=== PATIENT | female | born 1985 | race Caucasian/White ===

== ENCOUNTER 2018-12-11 12:04 | Outpatient (CLI) | payer OTHER, SELFPAY ==
[2018-12-11 12:41] LABS: HCT 41.9 % (36.0-46.0); HGB 14.5 g/dL (12.0-15.5); Mean Corp. HGB Concentration 34.6 g/dL (32.0-36.0); Mean Corpuscular Hemoglobin 31.7 pg (27.0-33.0); Mean Corpuscular Volume 91.7 fL (80-95); Mean Platelet Volume 10.2 fL (8.0-11.0); Platelet Count 344 x1000/uL (130-400); RBC 4.57 m/cumm (4.00-5.20); RBC Distribution Width 13.1 % (11.7-14.6); White Blood Cell Count 9.73 k/cumm (4.4-10.8)
[2018-12-11 13:30] LABS: ALT 105 U/L (12-78); AST 73 U/L (15-37); Albumin 3.9 g/dL (3.4-5.0); Alkaline Phosphatase 86 U/L (46-116); BUN 12 mg/dL (7-18); Bilirubin, Total 0.7 mg/dL (0.2-1.0); CREATININE 0.92 mg/dL (0.55-1.02); Calcium 9.2 mg/dL (8.5-10.1); Chloride 102 mmol/L (98-107); Cholesterol 175 mg/dL (50-200); Glucose 201 mg/dL (70-100); HDL Cholesterol 46 mg/dL (40-60); LDL CHOLESTEROL 110 mg/dL (<100); Potassium 4.3 mmol/L (3.5-5.1); Sodium 138 mmol/L (136-145); Total Protein 7.6 g/dL (6.4-8.2); Triglyceride 115 mg/dL (30-150)
[2018-12-11 13:36] LABS: TSH (W/Ref FT4) 1.95 uIU/mL (0.358-3.74)
== END 2018-12-11 12:24 ==
PROVIDERS: PCP Student in an Organized Health Care Education/Training Program; Visit Provider Student in an Organized Health Care Education/Training Program
DX: E03.9 Hypothyroidism, unspecified (principal); E11.65 Type 2 diabetes mellitus with hyperglycemia; Z86.2 Personal history of diseases of the blood and blood-forming organs and certain disorders involving the immune mechanism; Z13.220 Encounter for screening for lipoid disorders
CPT/HCPCS: 36415; 80053; 80061; 83721; 85027; 84443

== ENCOUNTER 2018-12-20 01:22 | Outpatient (CLI) | payer OTHER, SELFPAY ==
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
== END 2018-12-20 01:42 ==
PROVIDERS: PCP Student in an Organized Health Care Education/Training Program; Visit Provider Dietitian, Registered
DX: E11.9 Type 2 diabetes mellitus without complications (principal); Z79.84 Long term (current) use of oral hypoglycemic drugs; Z71.3 Dietary counseling and surveillance
CPT/HCPCS: 97802

== ENCOUNTER 2019-02-24 12:30 | Emergency (ER) | payer SELFPAY ==
[2019-02-24 12:40] VITALS: BP 126/86; PULSE 81; RESP 16; TEMP 36; O2SAT 98
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
--- NOTE | 2019-02-24 13:18 | NUR.NOTE ---
dc/rx reviewed with pt able to verblize understanding Nursing Note:
== END 2019-02-24 13:19 | disposition home or self-care (01) ==
PROVIDERS: Emergency Provider Student in an Organized Health Care Education/Training Program; PCP Student in an Organized Health Care Education/Training Program
DX: S00.86XA Insect bite (nonvenomous) of other part of head, initial encounter (principal); W57.XXXA Bitten or stung by nonvenomous insect and other nonvenomous arthropods, initial encounter; E11.9 Type 2 diabetes mellitus without complications; Z79.4 Long term (current) use of insulin
CPT/HCPCS: 36416; 82962; 99283

== ENCOUNTER 2019-04-27 10:12 | Emergency (ER) | payer MEDICAID, SELFPAY ==
[2019-04-27 10:30] VITALS: BP 125/87; PULSE 86; RESP 18; TEMP 36.4; O2SAT 99
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
== END 2019-04-27 11:22 | disposition home or self-care (01) ==
PROVIDERS: Emergency Provider Student in an Organized Health Care Education/Training Program; PCP Student in an Organized Health Care Education/Training Program
DX: R11.2 Nausea with vomiting, unspecified (principal); R19.7 Diarrhea, unspecified; J06.9 Acute upper respiratory infection, unspecified; E11.9 Type 2 diabetes mellitus without complications; Z79.84 Long term (current) use of oral hypoglycemic drugs
CPT/HCPCS: 99283

== ENCOUNTER 2019-05-22 14:49 | Emergency (ER) | payer OTHER, MEDICAID, SELFPAY ==
[2019-05-22 14:51] VITALS: BP 139/82; PULSE 94; RESP 16; TEMP 36.5; O2SAT 96
--- NOTE | 2019-05-22 15:04 | DI.RAD_ITS ---
EXAM: XR ELBOW LT COMPLETE CLINICAL HISTORY: fall, pain TECHNIQUE: COMPARISON: No exams were available for comparison FINDINGS: Three views were obtained. There is no evidence of an elbow joint effusion or hemarthrosis. No frac ture is seen. IMPRESSION:
--- NOTE | 2019-05-22 15:04 | DI.RAD_ITS ---
EXAM: XR WRIST LT COMPLETE CLINICAL HISTORY: fall, pain TECHNIQUE: COMPARISON: No exams were available for comparison FINDINGS: Three views were obtained. There is an ulnar minus variance. No evidence of acute fracture or dislo cation. IMPRESSION:
--- NOTE | 2019-05-22 15:07 | DI.RAD_ITS ---
EXAM: XR SHOULDER LT COMPLETE 2+V CLINICAL HISTORY: pain, fall TECHNIQUE: COMPARISON: No exams were available for comparison FINDINGS: Five views were obtained. There is no evidence of a fracture or dislocation. IMPRESSION:
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
[2019-05-22] MEDS: Ibuprofen 800 MG TAB PO (15:13)
== END 2019-05-22 16:09 | disposition home or self-care (01) ==
PROVIDERS: Emergency Provider Emergency Medicine; PCP Student in an Organized Health Care Education/Training Program; Referring Provider Student in an Organized Health Care Education/Training Program
DX: S63.502A Unspecified sprain of left wrist, initial encounter (principal); S46.912A Strain of unspecified muscle, fascia and tendon at shoulder and upper arm level, left arm, initial encounter; W01.0XXA Fall on same level from slipping, tripping and stumbling without subsequent striking against object, initial encounter
CPT/HCPCS: 29125; 99284; 73030; 73080; 73110; 99282; L3650; L3908

== ENCOUNTER 2019-05-23 20:46 | Emergency (ER) | payer OTHER, SELFPAY ==
[2019-05-23 20:53] VITALS: BP 145/94; PULSE 84; RESP 18; TEMP 36.9; O2SAT 96
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
[2019-05-23] MEDS: Lidocaine 5% Patch 1 PATCH TP (21:29)
--- NOTE | 2019-05-23 21:34 | DI.RAD_ITS ---
EXAM: XR SHOULDER LT COMPLETE 2+V INDICATION: re-injured/worse pain. COMPARISON: XR SHOULDER LT COMPLETE 2+V from 05/22/2019 TECHNIQUE: 2D digital imaging was performed. FINDINGS: No fracture or dislocation is seen. There are no significant degenerative changes. IMPRESSION: Negative left shoulder.
--- NOTE | 2019-05-23 21:50 | DI.VRAD_ITS ---
PROCEDURE INFORMATION: Exam: XR Left Shoulder Exam date and time: 05/23/2019 9:31 PM Clinical history: 33 years old, female; Injury or trauma; Injury history: Re-injured sprain/strain of left shoulder. Worse pain; Initial encounter; Blunt trauma (contusions or hematomas; Injury date: 05/23/2019; Injury details: Sprain/strain yesterday, re-injured today TECHNIQUE: Imaging protocol: XR Left shoulder. Views: 2 or more views. COMPARISON: CR XR SHOULDER LT COMPLETE 2+V 22/05/2019 15:15 FINDINGS: Bones/joints: Normal. Soft tissues: Unremarkable. IMPRESSION: No acute bony findings. If clinical symptoms persist recommend followup film in 7-10 days. Dictated and Authenticated by: Debbie Singh MD. Ordering:ART Singh MD
[2019-05-23 22:08] VITALS: BP 130/95; PULSE 88; RESP 18; TEMP 36.7; O2SAT 95
== END 2019-05-23 22:12 | disposition home or self-care (01) ==
PROVIDERS: Emergency Provider Emergency Medicine; PCP Student in an Organized Health Care Education/Training Program; Referring Provider Student in an Organized Health Care Education/Training Program
DX: S49.92XA Unspecified injury of left shoulder and upper arm, initial encounter (principal); W01.0XXA Fall on same level from slipping, tripping and stumbling without subsequent striking against object, initial encounter
CPT/HCPCS: 99283; 73030

== ENCOUNTER 2019-06-19 22:06 | Emergency (ER) | payer OTHER, SELFPAY ==
[2019-06-19 22:10] VITALS: BP 142/79; PULSE 76; RESP 18; TEMP 36.4; O2SAT 99
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
[2019-06-19] MEDS: Ondansetron O.D.T. 4 MG TABEF PO (22:50)
[2019-06-19 23:36] VITALS: BP 117/70; PULSE 75; RESP 17; O2SAT 95
== END 2019-06-19 23:30 | disposition home or self-care (01) ==
PROVIDERS: Emergency Provider Physician Assistant; PCP Student in an Organized Health Care Education/Training Program
DX: K52.9 Noninfective gastroenteritis and colitis, unspecified (principal)
CPT/HCPCS: 99283

== ENCOUNTER 2019-06-24 19:38 | Emergency (ER) | payer OTHER, SELFPAY ==
[2019-06-24 19:44] VITALS: BP 150/95; PULSE 80; RESP 18; TEMP 36.3; O2SAT 100
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
[2019-06-24] MEDS: Ketorolac 15 MG/ML VIAL IVP (20:12)
[2019-06-24] MEDS: Ondansetron 4 MG/2 ML VIAL IVP (20:14)
[2019-06-24] MEDS: Normal Saline Flush 10 ML SYR IVP (20:17)
[2019-06-24 20:25] LABS: Abs Immature Grans 0.04 k/cumm (0.0-0.09); Absolute Basophil Count 0.08 k/cumm (0.0-0.2); Absolute Eosinophil Count 0.38 k/cumm (0.0-0.7); Absolute Lymphocyte Count 2.83 k/cumm (1.2-3.4); Absolute Neutrophil Count 6.99 k/cumm (1.2-6.7); Basophils % 0.7; Eosinophils % 3.5; HCT 41.6 % (36.0-46.0); HGB 14.2 g/dL (12.0-15.5); Immature Grans % 0.4; Lymphocytes % 25.9; Mean Corp. HGB Concentration 34.1 g/dL (32.0-36.0); Mean Corpuscular Hemoglobin 31.8 pg (27.0-33.0); Mean Corpuscular Volume 93.1 fL (80-95); Mean Platelet Volume 10.5 fL (8.0-11.0); Monocytes % 5.5; Platelet Count 363 x1000/uL (130-400); RBC 4.47 m/cumm (4.00-5.20); RBC Distribution Width 12.5 % (11.7-14.6); White Blood Cell Count 10.92 k/cumm (4.4-10.8)
[2019-06-24 20:26] LABS: Bilirubin Negative (Negative); Blood Negative (Negative); Clarity Clear (Clear); Glucose 500 mg/dL (Negative); Ketones Negative (Negative); Leukocyte Esterase Negative (Negative); Nitrite Negative (Negative); Specific Gravity 1.015 (1.005-1.025); Urobilinogen 0.2 EU/dL (Up TO 0.2); pH 5.5 (5-8)
[2019-06-24 20:42] LABS: PTT Activated 23.9 sec (21.0-31.4); Prothrombin Time 9.8 sec (9.3-11.0)
[2019-06-24 20:50] LABS: ALT 47 U/L (14-59); AST 23 U/L (15-37); Albumin 3.8 g/dL (3.4-5.0); Alkaline Phosphatase 140 U/L (46-116); Anion Gap 12.1 mmol/L (3-11); BUN 7 mg/dL (7-18); Bilirubin, Total 0.2 mg/dL (0.2-1.0); CO2 24.9 mmol/L (21.0-32.0); Calcium 8.9 mg/dL (8.5-10.1); Chloride 100 mmol/L (98-107); Glucose 400 mg/dL (70-100); Lipase 171 U/L (73-393); Magnesium 1.6 mg/dL (1.8-2.4); Potassium 3.7 mmol/L (3.5-5.1); Sodium 137 mmol/L (136-145); Total Protein 7.8 g/dL (6.4-8.2)
[2019-06-24] MEDS: Omnipaque 350 MG/ML 100 ML BTL IJ (21:04)
--- NOTE | 2019-06-24 21:20 | DI.CT_ITS ---
EXAM: CT ABDOMEN AND PELVIS W CLINICAL HISTORY: right lower abdominal pain TECHNIQUE: 100 cc Omnipaque 350 IV. COMPARISON: RENAL COLIC WO CONTRAST from 07/17/2012 FINDINGS: The heart size is normal. The lung bases are clear. The liver shows moderate to severe fatty infilt ration. Patient is status post cholecystectomy. There is no biliary dilatation. The spleen is norm al in size. The adrenals, pancreas and kidneys are unremarkable. There is no bowel dilatation or in flammatory change. No free air or free fluid is seen. The bladder is unremarkable. IUD is noted wi thin the uterus. The ovaries are unremarkable as visualized. There is no free fluid. The aorta is normal in diameter. No fractures are identified. IMPRESSION: Enlarged fatty liver. No acute abnormality.
[2019-06-24 21:21] VITALS: BP 127/67; PULSE 77; RESP 16; O2SAT 96
[2019-06-24] MEDS: diphenhydrAMINE 50 MG/ML VIAL 25 MG IVP (21:22)
--- NOTE | 2019-06-24 21:24 | DI.VRAD_ITS ---
PROCEDURE INFORMATION: Exam: CT Abdomen And Pelvis With Contrast Exam date and time: 06/24/2019 9:07 PM Clinical history: 33 years old, female; Other: Rlq pain; Patient HX: Ectopic surgery, gallbladder surgery TECHNIQUE: Imaging protocol: Computed tomography of the abdomen and pelvis with intravenous contrast. Radiation optimization: All CT scans at this facility use at least one of these dose optimization techniques: automated exposure control; mA and/or kV adjustment per patient size (includes targeted exams where dose is matched to clinical indication); or iterative reconstruction. COMPARISON: No relevant prior studies available. FINDINGS: Normal appearing solid organs. No intestinal obstruction. No obstructive uropathy. No free fluid. No free air. No inflammatory changes. IMPRESSION: No specific etiology identified for the patient's symptoms. Dictated and Authenticated by: Omar Taveras MD. Ordering:MILTON Wood MD
[2019-06-24 22:02] VITALS: BP 114/68; PULSE 78; RESP 16; O2SAT 96
[2019-06-24] MEDS: Prochlorperazine 10 MG TAB PO (22:02)
== END 2019-06-24 22:20 | disposition home or self-care (01) ==
PROVIDERS: Emergency Provider Emergency Medicine; PCP Student in an Organized Health Care Education/Training Program
DX: R10.30 Lower abdominal pain, unspecified (principal); L29.9 Pruritus, unspecified
CPT/HCPCS: 36415; 80053; 81025; 83690; 96374; 96375; 99285; 74177; 81003; 83735; 85025; 85610; 85730; 99284; J1200; J1885; J2405; J3490

== ENCOUNTER 2019-08-18 19:52 | Emergency (ER) | payer OTHER, SELFPAY ==
[2019-08-18 19:56] VITALS: BP 116/58; PULSE 107; RESP 18; TEMP 36.4; O2SAT 97
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
--- NOTE | 2019-08-18 20:15 | DI.RAD_ITS ---
EXAM: XR ANKLE RT COMPLETE INDICATION: pain s/p fall. COMPARISON: RIGHT ANKLE COMPLETE from 02/05/2012 TECHNIQUE: 2D digital imaging was performed. FINDINGS: There is no acute fracture or dislocation. Enthesophytes are seen at the posterior calcaneus. The s oft tissues are unremarkable. IMPRESSION: No acute fracture or dislocation.
--- NOTE | 2019-08-18 20:27 | DI.VRAD_ITS ---
PROCEDURE INFORMATION: Exam: XR Right Ankle Exam date and time: 08/18/2019 8:19 PM Age: 33 years old Clinical indication: Ankle; Right; Patient HX: Pain S/P fall TECHNIQUE: Imaging protocol: XR Right ankle. Views: 3 or more views. COMPARISON: No relevant prior studies available. FINDINGS: Bones/joints: There is no acute fracture or dislocation. The ankle mortise symmetric. Calcaneal enthesophytes are noted. Soft tissues: Normal. IMPRESSION: No acute fracture or dislocation. Dictated and Authenticated by: Anca Vasquez MD. Ordering:MILTON Wood MD
[2019-08-18] MEDS: Ibuprofen 600 MG TAB PO (20:34)
== END 2019-08-18 20:45 | disposition home or self-care (01) ==
PROVIDERS: Emergency Provider Emergency Medicine; PCP Student in an Organized Health Care Education/Training Program
DX: S93.401A Sprain of unspecified ligament of right ankle, initial encounter (principal); X50.9XXA Other and unspecified overexertion or strenuous movements or postures, initial encounter
CPT/HCPCS: 29515; 99283; 73610; L1902

== ENCOUNTER 2019-09-20 21:11 | Emergency (ER) | payer OTHER, SELFPAY ==
[2019-09-20 21:30] VITALS: BP 157/108; PULSE 98; RESP 16; TEMP 36.7; O2SAT 99
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
[2019-09-20 22:37] VITALS: BP 130/90; PULSE 87; RESP 16; O2SAT 98
== END 2019-09-20 22:30 | disposition home or self-care (01) ==
PROVIDERS: Emergency Provider Physician Assistant; PCP Student in an Organized Health Care Education/Training Program
DX: B35.4 Tinea corporis (principal); L30.9 Dermatitis, unspecified; E11.9 Type 2 diabetes mellitus without complications; Z79.84 Long term (current) use of oral hypoglycemic drugs
CPT/HCPCS: 99283

== ENCOUNTER 2019-10-04 21:12 | Emergency (ER) | payer OTHER, SELFPAY ==
[2019-10-04 21:16] VITALS: BP 145/86; PULSE 89; RESP 16; TEMP 36.2; O2SAT 97
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
[2019-10-04 21:49] VITALS: BP 145/86; PULSE 89; RESP 16; O2SAT 97
== END 2019-10-04 21:45 | disposition home or self-care (01) ==
PROVIDERS: Emergency Provider Emergency Medicine; PCP Student in an Organized Health Care Education/Training Program
DX: R21 Rash and other nonspecific skin eruption (principal); R51 Headache; R11.2 Nausea with vomiting, unspecified; T38.3X5A Adverse effect of insulin and oral hypoglycemic [antidiabetic] drugs, initial encounter; E11.9 Type 2 diabetes mellitus without complications; Z79.84 Long term (current) use of oral hypoglycemic drugs
CPT/HCPCS: 99282; 99283

== ENCOUNTER 2019-10-08 15:59 | Emergency (ER) | payer OTHER, SELFPAY ==
[2019-10-08 16:05] VITALS: BP 154/93; PULSE 84; RESP 16; TEMP 36.8; O2SAT 98
--- NOTE | 2019-10-08 16:22 | DI.CT_ITS ---
EXAM: CT ABDOMEN PELVIS WO CLINICAL HISTORY: right lower abdominal pain. TECHNIQUE: Imaging Protocol: Axial computed tomography images with coronal and sagittal reformatted images were created and reviewed CONTRAST MATERIAL: Intravenous: Noncontrast Oral: No COMPARISON: No exams were available for comparison FINDINGS: ABDOMEN: Lung bases: Clear. There is a small hiatal hernia. Liver: Decreased attenuation consistent with fatty infiltration. No measurable mass. Gallbladder and biliary tract: Status post cholecystectomy. No radiodense calculus or dilation. Pancreas: Normal density, no abnormal calcifications or inflammatory process. Spleen: Normal. Kidneys: Normal size, contour and axis. No radiodense stones or obstructive uropathy. No masses seen. Adrenal glands: No masses seen. Abdominal Aorta: Abdominal portion non-dilated. PELVIS: Bladder: No gross wall thickening, focal mass or stones. Bowel: No obstruction or bowel wall thickening. Normal appendix. Peritoneal cavity: No ascites, focal collection or mesenteric inflammatory response. Bones: No suspicious lesions or fractures. Reproductive organs: Within normal limits. Lymph nodes: Unremarkable. Impression: No acute abnormality. DATA REPOSITORY: All CT scans at this facility are submitted to the National Radiology Data Registry (NRDR) Dose Index Registry (DIR) with the [employer] (ACR). RADIATION OPTIMIZATION: All CT scans at this facility use at least one of these dose optimization te chniques: automated exposure control; mA and/or kV adjustment per patient size (includes targeted exa ms where dose is matched to clinical indication); or iterative reconstruction.
[2019-10-08 16:32] LABS: BE (Venous) -0.3 mmol/L (-3-3); HCO3 (Venous) 24 mmol/L (22-28); O2 Sat (Venous) 85 % (70-80); TCO2 (Venous) 21 mmol/L (22-29); pCO2 (Venous) 37 mm/Hg (34-47); pH (Venous) 7.42 (7.35-7.45); pO2 (Venous) 47 mm/Hg (28-44)
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
[2019-10-08 16:35] LABS: Abs Immature Grans 0.05 k/cumm (0.0-0.09); Absolute Basophil Count 0.04 k/cumm (0.0-0.2); Absolute Lymphocyte Count 2.88 k/cumm (1.2-3.4); Absolute Monocyte Count 0.51 k/cumm (0.11-0.7); Basophils % 0.3; Eosinophils % 0.8; HCT 43.8 % (36.0-46.0); HGB 15.2 g/dL (12.0-15.5); Immature Grans % 0.4 %; Lymphocytes % 23.3; Mean Corp. HGB Concentration 34.7 g/dL (32.0-36.0); Mean Corpuscular Hemoglobin 31.8 pg (27.0-33.0); Mean Corpuscular Volume 91.6 fL (80-95); Mean Platelet Volume 9.9 fL (8.0-11.0); Monocytes % 4.1; Neutrophils % 71.1; Platelet Count 456 x1000/uL (130-400); RBC 4.78 m/cumm (4.00-5.20); White Blood Cell Count 12.38 k/cumm (4.4-10.8)
[2019-10-08] MEDS: Normal Saline 1,000 ML 1000 ML IV (16:43)
[2019-10-08] MEDS: fentaNYL 100 MCG/2 ML VIAL IVP (16:43)
[2019-10-08] MEDS: Ondansetron 4 MG/2 ML VIAL IVP (16:43)
[2019-10-08 16:48] LABS: ALT 25 U/L (14-59); AST 20 U/L (15-37); Albumin 3.8 g/dL (3.4-5.0); Alkaline Phosphatase 79 U/L (46-116); Anion Gap 12.5 mmol/L (3-11); BUN 8 mg/dL (7-18); Bilirubin, Total 0.4 mg/dL (0.2-1.0); CO2 24.5 mmol/L (21.0-32.0); CREATININE 0.75 mg/dL (0.55-1.02); Calcium 9.8 mg/dL (8.5-10.1); Chloride 100 mmol/L (98-107); Glucose 124 mg/dL (74-106); Lipase 237 U/L (73-393); Magnesium 1.6 mg/dL (1.8-2.4); Potassium 4.1 mmol/L (3.5-5.1); Sodium 137 mmol/L (136-145); Total Protein 8.2 g/dL (6.4-8.2)
[2019-10-08 16:56] LABS: PTT Activated 24.5 sec (21.0-31.4); Prothrombin Time 9.7 sec (9.3-11.0)
[2019-10-08 16:58] LABS: ETHANOL BLOOD < 3.0 mg/dL (<3)
--- NOTE | 2019-10-08 17:22 | DI.VRAD_ITS ---
PROCEDURE INFORMATION: Exam: CT Abdomen And Pelvis Without Contrast Exam date and time: 10/08/2019 4:56 PM Age: 33 years old Clinical indication: Localized; Right lower quadrant (rlq); Patient HX: Right lower abdominal pain TECHNIQUE: Imaging protocol: Computed tomography of the abdomen and pelvis without contrast. COMPARISON: CT ABDOMEN PELVIS W 24/06/2019 21:09 FINDINGS: Mediastinum: Hiatal hernia. Liver: Hepatic steatosis. Gallbladder and bile ducts: Cholecystectomy. Pancreas: Normal. No ductal dilation. Spleen: Normal. No splenomegaly. Adrenals: Normal. No mass. Kidneys and ureters: Normal. No hydronephrosis. Stomach and bowel: Unremarkable. No obstruction. No mucosal thickening. Appendix: No evidence of appendicitis. Intraperitoneal space: Unremarkable. No free air. No significant fluid collection. Vasculature: Unremarkable. No abdominal aortic aneurysm. Lymph nodes: Inguinal adenopathy. Bladder: Unremarkable as visualized. Reproductive: Unremarkable as visualized. Bones/joints: Unremarkable. No acute fracture. Soft tissues: Unremarkable. IMPRESSION: No acute findings. Dictated and Authenticated by: Debbie Singh MD. Ordering:MILTON Wood MD
[2019-10-08 17:27] LABS: Bilirubin Negative (Negative); Blood Negative (Negative); Clarity Clear (Clear); Glucose Negative (Negative); Ketones Negative (Negative); Leukocyte Esterase Negative (Negative); Nitrite Negative (Negative); Urobilinogen 0.2 EU/dL (Up TO 0.2); pH 6.5 (5-8)
[2019-10-08 17:45] VITALS: BP 121/60; PULSE 79; RESP 12; TEMP 36.1; O2SAT 99
== END 2019-10-08 17:52 | disposition home or self-care (01) ==
PROVIDERS: Emergency Provider Emergency Medicine; PCP Student in an Organized Health Care Education/Training Program
DX: R10.31 Right lower quadrant pain (principal); E11.9 Type 2 diabetes mellitus without complications; Z79.84 Long term (current) use of oral hypoglycemic drugs
CPT/HCPCS: 36415; 80053; 81025; 82805; 83690; 96361; 96374; 96375; 99285; 74176; 80320; 81003; 83735; 85025; 85610; 85730; 99284; J2405; J3010

== ENCOUNTER 2019-10-23 20:26 | Emergency (ER) | payer OTHER, SELFPAY ==
[2019-10-23 20:30] VITALS: BP 157/95; PULSE 89; RESP 14; TEMP 36.3; O2SAT 97
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
== END 2019-10-23 21:05 | disposition home or self-care (01) ==
PROVIDERS: Emergency Provider Physician Assistant; PCP Student in an Organized Health Care Education/Training Program
DX: R09.81 Nasal congestion (principal); J02.9 Acute pharyngitis, unspecified; E11.9 Type 2 diabetes mellitus without complications; Z79.4 Long term (current) use of insulin
CPT/HCPCS: 99282

== ENCOUNTER 2020-01-29 14:29 | Emergency (ER) | payer OTHER, SELFPAY ==
[2020-01-29 14:34] VITALS: BP 159/92; PULSE 88; RESP 16; TEMP 36.3; O2SAT 98
--- NOTE | 2020-01-29 14:45 | DI.RAD_ITS ---
EXAM: XR FOOT RT COMPLETE CLINICAL HISTORY: Dropped a cinder block on foot TECHNIQUE: COMPARISON: CR RIGHT FOOT COMPLETE from 02/05/2012 FINDINGS: Three views were obtained. No fracture is seen IMPRESSION:
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
[2020-01-29 15:44] VITALS: BP 131/76; PULSE 88; RESP 18; TEMP 36.5; O2SAT 97
== END 2020-01-29 15:49 | disposition home or self-care (01) ==
PROVIDERS: Emergency Provider Physician Assistant; PCP Student in an Organized Health Care Education/Training Program
DX: S90.31XA Contusion of right foot, initial encounter (principal); W20.8XXA Other cause of strike by thrown, projected or falling object, initial encounter; E11.9 Type 2 diabetes mellitus without complications; Z79.84 Long term (current) use of oral hypoglycemic drugs
CPT/HCPCS: 99283; 73630; L4361

== ENCOUNTER 2020-02-25 14:01 | Emergency (ER) | payer OTHER, SELFPAY ==
[2020-02-25 14:06] VITALS: BP 140/79; PULSE 78; RESP 18; TEMP 36.5; O2SAT 97
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
[2020-02-25] MEDS: Ciprofloxacin/Dexameth. 7.5 ML BTL AD (16:00)
== END 2020-02-25 16:26 | disposition home or self-care (01) ==
PROVIDERS: Emergency Provider Student in an Organized Health Care Education/Training Program; PCP Student in an Organized Health Care Education/Training Program
DX: H60.91 Unspecified otitis externa, right ear (principal); E11.9 Type 2 diabetes mellitus without complications; Z79.4 Long term (current) use of insulin
CPT/HCPCS: 36416; 82962; 99283

== ENCOUNTER 2020-04-18 19:09 | Outpatient (CLI) | payer OTHER, SELFPAY ==
--- NOTE | 2020-04-18 10:32 | DI.RAD_ITS ---
EXAM: XR WRIST RT COMPLETE CLINICAL HISTORY: R wrist pain s/p hyperflexion ? dislocation, M25.531, pain. TECHNIQUE: 2D digital imaging was performed. COMPARISON: CR XR WRIST LT COMPLETE from 05/22/2019 FINDINGS: BONES: No acute fracture is present. No bony destructive lesion is seen. JOINTS: The carpal bones are normally aligned. SOFT TISSUE: Normal. IMPRESSION: Unremarkable radiographs of the right wrist. DATA REPOSITORY: RADIATION DOSE DELIVERED:
== END 2020-04-18 19:29 ==
PROVIDERS: PCP Student in an Organized Health Care Education/Training Program; Visit Provider Nurse Practitioner Family
DX: M25.531 Pain in right wrist (principal)
CPT/HCPCS: 73110

== ENCOUNTER 2020-07-29 13:38 | Emergency (ER) | payer OTHER, SELFPAY ==
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
[2020-07-29 13:50] VITALS: BP 159/109; PULSE 96; RESP 16; TEMP 36.3; O2SAT 97
[2020-07-29 13:54] LABS: Bilirubin Negative (Negative); Blood Trace-lysed (Negative); Clarity Sl Cloudy (Clear); Glucose 500 mg/dL (Negative); Ketones Negative (Negative); Leukocyte Esterase Negative (Negative); Nitrite Negative (Negative); Specific Gravity 1.025 (1.005-1.025); Urobilinogen 0.2 EU/dL (Up TO 0.2)
[2020-07-29 14:11] LABS: Bacteria Few HPF (Negative); Crystals Rare Calcium Oxalate HPF (Negative); Epithelial Cells Many HPF (Negative); RBC 0-2 HPF (0-2); WBC 0-2 HPF (0-5)
[2020-07-29 14:12] LABS: C & S Indicated? No/Sq. Contamination; Mucus Trace (Negative)
[2020-07-29] MEDS: Normal Saline 1,000 ML 1000 ML IV (14:15)
[2020-07-29 14:16] LABS: Abs Immature Grans 0.04 10^3/uL (0.0-0.06); Absolute Basophil Count 0.06 10^3/uL (0.0-0.2); Absolute Eosinophil Count 0.14 10^3/uL (0.0-0.7); Absolute Lymphocyte Count 2.53 10^3/uL (1.2-3.4); Absolute Monocyte Count 0.37 10^3/uL (0.1-0.8); Absolute Neutrophil Count 5.82 10^3/uL (1.2-6.7); Basophils % 0.7; Eosinophils % 1.6; HCT 39.6 % (36.0-46.0); HGB 13.5 g/dL (11.2-15.7); Immature Grans % 0.4; Lymphocytes % 28.2; MCH 32.1 pg (27.0-33.0); MCHC 34.1 % (32.0-36.0); MCV 94.3 fL (80-95); MPV 10.4 fL (8.0-11.0); Monocytes % 4.1; Nucleated RBC 0 %; Platelet Count 308 10^3/uL (130-400); RDW 12.1 % (11.7-14.6); RDW-SD 42.3 fL; WBC 8.96 10^3/uL (4.4-10.8)
[2020-07-29] MEDS: Ondansetron 4 MG/2 ML VIAL IVP (14:20)
--- NOTE | 2020-07-29 14:22 | DI.CT_ITS ---
EXAM: CT ABDOMEN PELVIS WO CLINICAL HISTORY: RUQ/R mid/RLQ pain. TECHNIQUE: Imaging Protocol: Axial computed tomography images with coronal and sagittal reformatted images were created and reviewed. COMPARISON: CT CT ABDOMEN PELVIS WO from 10/08/2019 FINDINGS: ABDOMEN: Lung Bases: Normal where visualized. Liver: There is diffuse decreased attenuation of the liver consistent with fatty infiltration. The l iver measures 22 cm in length. No measurable mass. Gallbladder and biliary tract: The patient is status post cholecystectomy. No biliary ductal dilatat ion. Pancreas: Normal density, no abnormal calcifications or inflammatory process. Spleen: Normal. Kidneys: Normal size, contour and axis.No radiodense stones or obstructive uropathy. No masses seen. Adrenal glands: No mass is seen. Lymph nodes: Within normal limits. Abdominal Aorta: Abdominal portion non-dilated. PELVIS: Bladder:Symmetric distention, no gross wall thickening. Bowel: No obstruction or bowel wall thickening. Appendix is unremarkable. Colonic diverticulosis but no evidence of acute diverticulitis. Small hiatal hernia. Peritoneal cavity: No ascites, collection or mesenteric inflammatory response Reproductive organs: Within normal limits. Bones: Within normal limits. Soft Tissues: Within normal limits. IMPRESSION: 1. No acute abdominal or pelvic process. 2. No evidence of nephrolithiasis or hydronephrosis. 3. Normal appendix. 4. No biliary ductal dilatation. 5. Fatty infiltration of the liver and hepatomegaly. 6. Findings were discussed with the emergency department on the date of the examination. RADIATION DOSE DELIVERED: 1,674.74mGy.cm Total DLP DATA REPOSITORY: All CT scans at this facility are submitted to the National Radiology Data Registry (NRDR) Dose Index Registry (DIR) with the [employer] (A[employer]). RADIATION OPTIMIZATION: All CT scans at this facility use at least one of these dose optimization te chniques: automated exposure control; mA and/or kV adjustment per patient size (includes targeted exa ms where dose is matched to clinical indication); or iterative reconstruction.
[2020-07-29] MEDS: ACETAMINOPHEN 1,000 MG/100 ML BTL 400 MG IVPB (14:29)
[2020-07-29 14:36] LABS: ALT 32 U/L (14-59); AST 31 U/L (15-37); Albumin 3.4 g/dL (3.4-5.0); Alkaline Phosphatase 91 U/L (46-116); Anion Gap 11.4 mmol/L (3-11); BUN 7 mg/dL (7-18); Bilirubin, Total 0.3 mg/dL (0.2-1.0); CO2 24.6 mmol/L (21.0-32.0); CREATININE 0.87 mg/dL (0.55-1.02); Calcium 8.8 mg/dL (8.5-10.1); Chloride 101 mmol/L (98-107); Glucose 264 mg/dL (74-106); Potassium 4.1 mmol/L (3.5-5.1); Sodium 137 mmol/L (136-145); Total Protein 7.2 g/dL (6.4-8.2)
[2020-07-29 14:37] LABS: Lipase 116 U/L (73-393)
[2020-07-29] MEDS: Ketorolac 30 MG/ML VIAL IVP (15:00)
[2020-07-29] MEDS: Dicyclomine 20 MG TAB PO (15:24)
[2020-07-29 15:26] VITALS: BP 120/67; PULSE 82; RESP 18; O2SAT 96
== END 2020-07-29 15:50 | disposition home or self-care (01) ==
LOC: ER 15:39
PROVIDERS: Emergency Provider Physician Assistant; PCP Student in an Organized Health Care Education/Training Program
DX: R11.2 Nausea with vomiting, unspecified (principal); R19.7 Diarrhea, unspecified; R10.31 Right lower quadrant pain; R10.11 Right upper quadrant pain; E11.65 Type 2 diabetes mellitus with hyperglycemia; Z79.4 Long term (current) use of insulin; Z87.442 Personal history of urinary calculi; Z90.49 Acquired absence of other specified parts of digestive tract
CPT/HCPCS: 36415; 80053; 81025; 83690; 96361; 96374; 96375; 99284; 74176; 81003; 81015; 85025; 99285; J0131; J1885; J2405

== ENCOUNTER 2020-08-21 09:47 | Outpatient (CLI) | payer OTHER, SELFPAY ==
[2020-08-22 15:26] LABS: COVID-19 RT-PCR Result NEGATIVE (Negative)
== END 2020-08-21 10:07 ==
PROVIDERS: PCP Student in an Organized Health Care Education/Training Program; Visit Provider Student in an Organized Health Care Education/Training Program
DX: Z11.52 Encounter for screening for COVID-19 (principal)
CPT/HCPCS: U0003

== ENCOUNTER 2020-09-09 15:17 | Emergency (ER) | payer OTHER, SELFPAY ==
[2020-09-09 15:20] VITALS: BP 152/93; PULSE 91; RESP 18; TEMP 36.6; O2SAT 98
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
== END 2020-09-09 16:00 | disposition home or self-care (01) ==
PROVIDERS: Emergency Provider Physician Assistant; PCP Student in an Organized Health Care Education/Training Program
DX: R09.81 Nasal congestion (principal); E11.9 Type 2 diabetes mellitus without complications; Z79.84 Long term (current) use of oral hypoglycemic drugs
CPT/HCPCS: 36416; 82962; 99282; 99283

== ENCOUNTER 2020-09-25 02:50 | Outpatient (CLI) | payer OTHER, SELFPAY ==
[2020-09-25 10:05] LABS: Anion Gap 11.6 mmol/L (3-11); BUN 8 mg/dL (7-18); CO2 24.4 mmol/L (21.0-32.0); CREATININE 0.9 mg/dL (0.55-1.02); Calcium 9.4 mg/dL (8.5-10.1); Chloride 100 mmol/L (98-107); Glucose 300 mg/dL (74-106); Magnesium 1.7 mg/dL (1.8-2.4); Potassium 4.1 mmol/L (3.5-5.1); Sodium 136 mmol/L (136-145); TSH (W/Ref FT4) 2.99 uIU/mL (0.36-3.74)
[2020-09-26 09:37] LABS: IgE 274 IU/mL (<158)
[2020-09-29 13:12] LABS: Crab IgE <0.35 kU/L; Lobster IgE <0.35 kU/L; Onion, IgE <0.35 kU/L; Shrimp IgE <0.35 kU/L
[2020-09-30 11:18] LABS: Misc Referral (MAYO) See Comments
== END 2020-09-25 02:51 | disposition home or self-care (01) ==
LOC: LBO 02:50
PROVIDERS: PCP Student in an Organized Health Care Education/Training Program; Visit Provider Student in an Organized Health Care Education/Training Program
DX: E11.65 Type 2 diabetes mellitus with hyperglycemia (principal); E03.9 Hypothyroidism, unspecified; E86.0 Dehydration; R19.7 Diarrhea, unspecified; Z88.9 Allergy status to unspecified drugs, medicaments and biological substances
CPT/HCPCS: 80048; 86003; 82785; 83735; 84443

== ENCOUNTER → 2021-04-23 19:26 | Outpatient (CLI) | payer OTHER, SELFPAY ==
--- NOTE | 2021-04-23 14:45 | DI.RAD_ITS ---
Exam(s) XR HAND RT COMPLETE EXAM: XR HAND RT COMPLETE CLINICAL HISTORY: r/o bony pathology, RT HAND PAIN, FALL, [id number], [id number]. TECHNIQUE: 2D digital imaging was performed of the right hand. Three views were obtained. AP, later al and oblique views were obtained. COMPARISON: No exams were available for comparison FINDINGS: BONES: No acute fracture is present. No bony destructive lesion is seen. JOINTS: No dislocation present. SOFT TISSUE: Normal. IMPRESSION: Unremarkable radiographs of the right hand. DATA REPOSITORY: RADIATION DOSE DELIVERED:
--- NOTE | 2021-04-23 14:45 | DI.RAD_ITS ---
Exam(s) XR RIBS LT W PA LAT CHEST EXAM: XR RIBS LT W PA LAT CHEST CLINICAL HISTORY: r/o bony path, RIB PAIN LT SIDE, [id number], W19.[id number], FALL TECHNIQUE: 2D digital imaging was performed. COMPARISON: No exams were available for comparison FINDINGS: MEDIASTINUM: Normal. HEART: Normal. PULMONARY VASCULATURE: Normal. LUNGS: Clear. PLEURAL SPACE: No pleural effusion or pneumothorax. BONE:Normal. LEFT RIBS: Normal. OTHER FINDINGS:Normal. IMPRESSION: 1. No acute pulmonary findings. 2. Unremarkable left ribs. DATA REPOSITORY: RADIATION DOSE DELIVERED:
== END ==
PROVIDERS: PCP Student in an Organized Health Care Education/Training Program; Visit Provider Student in an Organized Health Care Education/Training Program
DX: M79.641 Pain in right hand (principal); W19.XXXA Unspecified fall, initial encounter; R07.81 Pleurodynia
CPT/HCPCS: 71046; 71100; 73130

== ENCOUNTER 2021-06-18 15:29 | Outpatient (CLI) | payer OTHER, SELFPAY ==
--- NOTE | 2021-06-18 14:30 | NS.NUTBLAN_ITS ---
Cecelia was referred for diabetes self management education. PMH: DM2, hypothyroidism, PCOS, morbid obesity. Most recent A1C: 10.1% (03/20/21). She reports that she was dx with DM2 at age 12 (originally took actos and avandia) but was able to get off these medications by walking daily 2-3 miles. She developed GDM with first and has had Dm since. Reports unable to afford rapid insulin and has intolerances to many DM meds including metformin, lantus, ozempic, tresiba. She tolerates NPH insulin and buys it at [facility] as co pay more expensive with current insurance through husbands employer. Diet recall indicates reliance on convenience foods. Has script for 10 u NPH that she will bring to appt next week with PCP. Offered to provide her insulin teaching, she declined. Cecleia reports unable to go outside since her disabled son has grown out of his stroller. Many barriers for self care identified. Session today focused on placing a Jose 2 continuous glucose monitor to provide real time feed back on her meal choices. She reports that last week, her reading was > 300 mg/dl after dinner. Programed CGM to alarm with BS > 200 mg/dl. Reviewed how to count carbs and encouraged increased intake of non starchy vegetables and lean protein. She is unsure if she will be able to follow meal plan as has limited income for groceries. Declined referral to [employer] for assistance in food stamps or other services she may be eligible for. Session today also included pros and cons of bariatric surgery for weight reduction and Dm improvement. Cecelia is interested in learning more about this method and made follow up with Marilin Davis RD at next visit to discuss. Follow up 06/30/21 at 11 am for CGM data down load, will at that time, fax results to PCP.
== END 2021-06-18 15:30 | disposition home or self-care (01) ==
LOC: DS 15:29
PROVIDERS: PCP Student in an Organized Health Care Education/Training Program; Visit Provider Dietitian, Registered
DX: E11.9 Type 2 diabetes mellitus without complications (principal); E03.9 Hypothyroidism, unspecified; E66.01 Morbid (severe) obesity due to excess calories; Z79.4 Long term (current) use of insulin; Z71.3 Dietary counseling and surveillance
CPT/HCPCS: 97802

== ENCOUNTER 2021-07-12 10:19 | Emergency (ER) | payer OTHER, SELFPAY ==
[2021-07-12 10:23] VITALS: BP 143/86; PULSE 95; TEMP 36.9; O2SAT 97
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
== END 2021-07-12 11:13 | disposition home or self-care (01) ==
PROVIDERS: Emergency Provider Physician Assistant; PCP Student in an Organized Health Care Education/Training Program
DX: R68.84 Jaw pain (principal); K08.89 Other specified disorders of teeth and supporting structures
CPT/HCPCS: 99283

== ENCOUNTER 2021-07-23 02:45 | Outpatient (CLI) | payer OTHER, SELFPAY ==
--- NOTE | 2021-07-23 13:30 | NS.NUTBLAN_ITS ---
Cecelia returns for Medical Nutrition Therapy for diabetes self management education/weight management and bariatric nutrition counseling. 5'5 265 lbs, BMI: 44. PMH: Dm2, morbid obesity. Accompanied by her who is also interested in having bariatric surgery. Cecelia and met with [facility] [place] 2 years ago. Cecelia spends her days caring for her disabled son. She reports that she has started to take her NPH and does not need education on how to inject. Diet Recall: mac n cheese, pizza- mostly processed foods. DM meds: NPH: 10 units in AM Received a [employer] 2 continuous glucose monitor at previous meeting and brings it back for data down load. She cannot afford sensors going forward (costs $73/2 sensors) Ambulatory Glucose Profile: 06/16/21-06/29/21- was not taking NPH during this time Actual Goal Average Blood Sugar: 296 mg/dl 80-120 mg/dl Glucose Management Indicator: 10.4% < 7% Glucose Variability: 16.8% < 36% Time In Range (70-180 mg/dl) 1%% >70% Below 70 mg/dl: 0% < 4% Below 54 mg/dl : 0% < 1% Above 180 mg/dl: 16% < 25% Above 250 mg/dl: 83% < 5% During 06/16-06/29, Cecelia had very poor glyemic control. Since that time, she has restarted NPH at 10 units in AM. She is unable to take most other Dm meds other than Novolin. Based on her weight and previous blood sugar history, recommend increasing NPH to 20 units AM, 20 units PM. Cecelia is willing to check her blood sugars TID. Also reviewed dietary changes she can make to improve her DM. Informed Cecelia that I will send glycemic data to her PCP and that she will need to follow up with her and adjust insulin doses. follow up meeting 08/27/21 at 11 am.
== END 2021-07-23 02:46 | disposition home or self-care (01) ==
PROVIDERS: PCP Student in an Organized Health Care Education/Training Program; Visit Provider Dietitian, Registered
DX: E11.9 Type 2 diabetes mellitus without complications (principal); E66.01 Morbid (severe) obesity due to excess calories; Z79.4 Long term (current) use of insulin; Z71.3 Dietary counseling and surveillance
CPT/HCPCS: 97803

== ENCOUNTER 2021-08-27 02:15 | Outpatient (CLI) | payer OTHER, SELFPAY ==
--- NOTE | 2021-08-27 11:00 | NS.NUTBLAN_ITS ---
Cecelia returns for diabetes self management education and weight management education in preparation for bariatric surgery. 5'5 263 lbs BMI 44. no change in weight x 30 days. PMH: DM2, morbid obesity. Meds: Novolin 10 units q AM. Diet Recall: breakfast sandwich, chop suey, cranberry juice, pizza. Exercise: no formal exercise- cares for disabled son Cecelia reports blood sugars > 250 mg/dl in am, and readings as high as 500 mg/dl last week. Able to tolerate NPH insulin, allergic to most Dm meds. Asked Cecelia to contact PCP re: elevated blood sugars. Recommend increasing NPH by 2 units every 2 days until morning readings less than 140 mg/dl. At very high risk for complications from hyperglycemia. Reviewed strategies to reduce blood sugars and importance of hydration. Encouraged water and non caloric beverages only. Cecelia unable or unwilling to increase lean protein in diet- is willing however to add a whey protein shake daily. Encouraged her to read labels and limit carbs to no more than 100 grams daily and to increase exercise/activity as able. Provided phone number to sign up for [facility] bariatric introductory session. Follow up 09/24/21 at 11 am.
== END 2021-08-27 02:16 | disposition home or self-care (01) ==
LOC: DS 02:15
PROVIDERS: PCP Student in an Organized Health Care Education/Training Program; Visit Provider Dietitian, Registered
DX: Z71.3 Dietary counseling and surveillance (principal); E66.9 Obesity, unspecified; E11.9 Type 2 diabetes mellitus without complications; Z68.41 Body mass index [BMI] 40.0-44.9, adult; Z79.4 Long term (current) use of insulin
CPT/HCPCS: 97803

== ENCOUNTER 2021-09-29 04:19 | Outpatient (CLI) | payer OTHER, SELFPAY ==
--- NOTE | 2021-09-29 10:00 | NS.NUTBLAN_ITS ---
Cecelia returns for nutritional counseling in preparation for bariatric surgery. Wt: 264 lbs, 5'5 BMI 44. She has had diabetes since she was 12 years old. She has mulitple allergies to Dm meds and has poorly controlled DM2. Bariatric surgery will be a wonderful option for treatment for her DM and obesity. PMH: Dm2, morbid obesity.? ? DM Meds: 10 u NPH insulin. Diet Recall: breakfast sandwich, chicken fingers, string beans, protein shake Cecelia has maintained her weight in last 3 months despite making changes to her diet by reducing simple sugars and increasing lean protein and non starchy vegetables. She reports have some elevated BS this week (250mg/dl) and attributes elevations to stress. Son has been having seizures lately and appt with neurologist was post steven. She and her are both increasing vegetables in their diet and enjoying them. Cecelia to attend [facility] introductory bariatric session on 10/09/21. Her PCP is on board. Will continue to support and encourage during weight loss process.
== END 2021-09-29 04:20 | disposition home or self-care (01) ==
LOC: DS 04:19
PROVIDERS: PCP Student in an Organized Health Care Education/Training Program; Visit Provider Dietitian, Registered
DX: E66.01 Morbid (severe) obesity due to excess calories (principal); Z68.41 Body mass index [BMI] 40.0-44.9, adult; E11.69 Type 2 diabetes mellitus with other specified complication; Z79.4 Long term (current) use of insulin; Z71.3 Dietary counseling and surveillance
CPT/HCPCS: 97803

== ENCOUNTER 2021-11-30 05:33 | Outpatient (CLI) | payer OTHER, SELFPAY ==
--- NOTE | 2021-11-30 13:00 | NS.NUTBLAN_ITS ---
Cecelia returns for weight management and diabetes self management education. Wt: 265 lbs, 5'5 no change in weight since last visit. Food Record: breakfast sandwich, often skips lunch, ink grinder for dinner. Cecelia reports she has stopped taking her NPH as she cannot tolerate it. She is not checking her blood sugars. She states she cannot care for herself as she is overwhelmed by caring for her son. She has reduced soda intake and is drinking more water. She also reports going for more walks lately. Cecelia and , Shyam, have not followed through with [facility] [place] at this time. It is unclear if they want to pursue this. Overall, session today was unproductive. Rehabilitation Inspector is unclear about how to assist Cecelia or her as they have so many barriers to eating healthy and taking care of themselves. Cecelia is at very high risk for complications related to uncontrolled diabetes. No follow up planned at this time.
== END 2021-11-30 05:34 | disposition home or self-care (01) ==
LOC: DS 05:33
PROVIDERS: PCP Student in an Organized Health Care Education/Training Program; Visit Provider Dietitian, Registered
DX: E11.69 Type 2 diabetes mellitus with other specified complication (principal); E66.01 Morbid (severe) obesity due to excess calories; Z71.3 Dietary counseling and surveillance
CPT/HCPCS: 97803

== ENCOUNTER 2022-04-25 06:47 | Emergency (ER) | payer OTHER, SELFPAY ==
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
[2022-04-25 07:11] VITALS: BP 134/86; PULSE 90; TEMP 36.8; O2SAT 95
[2022-04-25] MEDS: Dexamethasone 10 MG/ML VIAL IVP (07:22)
== END 2022-04-25 07:55 | disposition home or self-care (01) ==
PROVIDERS: Emergency Provider Emergency Medicine; PCP Family Medicine
DX: J06.9 Acute upper respiratory infection, unspecified (principal); J45.909 Unspecified asthma, uncomplicated
CPT/HCPCS: 96374; 99284; J1100

== ENCOUNTER 2022-04-27 13:02 | Outpatient (CLI) | payer OTHER, SELFPAY ==
--- NOTE | 2022-04-27 12:00 | DI.RAD_ITS ---
Exam(s) XR CHEST 2V PA LATERAL EXAM: XR CHEST 2V PA LATERAL CLINICAL HISTORY: R/O pneumonia, COVID negative J40 BRONCHITIS. TECHNIQUE: 2D digital imaging was performed. COMPARISON: CR XR RIBS LT W PA LAT CHEST from 04/23/2021 FINDINGS: 2 views: Heart size is normal. The mediastinum is not widened. Lungs are clear. No infiltrates nor pleural effusions. IMPRESSION: No acute pulmonary findings. DATA REPOSITORY: RADIATION DOSE DELIVERED:
== END 2022-04-27 13:22 ==
LOC: DI 13:16
PROVIDERS: PCP Family Medicine; Visit Provider Family Medicine
DX: J40 Bronchitis, not specified as acute or chronic (principal)
CPT/HCPCS: 71046

== ENCOUNTER 2023-04-05 10:10 | Emergency (ER) | payer OTHER, SELFPAY ==
[2023-04-05] VITALS (47 sets, daily range): BP systolic 100–131; BP diastolic 67–86; PULSE 74–99; RESP 12–20; TEMP 36.8; O2SAT 94–99
--- NOTE | 2023-04-05 10:30 | DI.MRI_ITS ---
Exam(s) MR LUMBAR SPINE WO EXAM: MR LUMBAR SPINE WO CLINICAL HISTORY: back pain, loss of bladder, decreased sensation. TECHNIQUE: Multiplanar multisequence MRI of the Lumbar spine was performed. COMPARISON: No exams were available for comparison FINDINGS: Bones: The last intervertebral disc space is designated the L5/S1 level for the numbering purpose of this examination. The vertebral body heights are well maintained. Alignment is satisfactory. The si gnal characteristics are unremarkable. Cord: The conus tip ends at the L1 level. It is of normal size and signal intensity. T12-L1: No disc herniations or bulges are present. No central spinal canal or neural foraminal stenos is. L1-2: No disc herniations or bulges are present. No central spinal canal or neural foraminal stenosis . L2-3: No disc herniations or bulges are present. No central spinal canal or neural foraminal stenosis . L3-4: No disc herniations or bulges are present. No central spinal canal or neural foraminal stenosis . L4-5: No disc herniations or bulges are present. No central spinal canal or neural foraminal stenosis . L5-S1: There is a small left paracentral disc herniation. There is mild impingement of the left S1 n erve root. No central spinal canal or neural foraminal stenosis. Soft tissues: The visualized SI joints and sacrum are well maintained. The paraspinal soft tissues ar e unremarkable. IMPRESSION: 1. Small left paracentral L5-S1 disc herniation which cause mild impingement on the left S1 nerve maribel t. 2. Findings were discussed with Frances Park at 3:56 p.m. on 04/05/2023. DATA REPOSITORY:
[2023-04-05] MEDS: diazePAM 10 MG/2 ML SYR 2.5 MG IVP (10:50)
[2023-04-05 11:02] LABS: Abs Immature Grans 0.05 10^3/uL (0.0-0.06); Absolute Basophil Count 0.11 10^3/uL (0.0-0.2); Absolute Eosinophil Count 0.18 10^3/uL (0.0-0.7); Absolute Lymphocyte Count 2.47 10^3/uL (1.2-3.4); Absolute Monocyte Count 0.44 10^3/uL (0.1-0.8); Absolute Neutrophil Count 6.27 10^3/uL (1.2-6.7); Basophils % 1.2; Eosinophils % 1.9; HCT 45.8 % (36.0-46.0); HGB 16.1 g/dL (11.2-15.7); Immature Grans % 0.5; Lymphocytes % 25.9; MCH 32.8 pg (27.0-33.0); MCHC 35.2 % (32.0-36.0); MCV 93 fL (80-95); MPV 10.1 fL (8.0-11.0); Monocytes % 4.6; Neutrophils % 65.9; Platelet Count 370 10^3/uL (130-400); RBC 4.91 10^6/uL (3.93-5.22); RDW 12.2 % (11.7-14.6); WBC 9.52 10^3/uL (4.4-10.8)
[2023-04-05 11:29] LABS: ALT 63 U/L (14-59); AST 39 U/L (15-37); Albumin 4.1 g/dL (3.4-5.0); Alkaline Phosphatase 96 U/L (46-116); Anion Gap 11.3 mmol/L (3-11); BUN 12 mg/dL (7-18); Bilirubin, Total 0.9 mg/dL (0.2-1.0); CO2 24.7 mmol/L (21.0-32.0); CREATININE 0.9 mg/dL (0.55-1.02); Calcium 9.2 mg/dL (8.5-10.1); Chloride 98 mmol/L (98-107); Estimated GFR 83.92 (mL/min/1.73m2); Glucose 292 mg/dL (74-106); Potassium 4.2 mmol/L (3.5-5.1); Sodium 134 mmol/L (136-145); Total Protein 8.6 g/dL (6.4-8.2)
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
[2023-04-05 11:32] LABS: Bilirubin Negative (Negative); Blood Trace-intact (Negative); Clarity Clear (Clear); Glucose >=1000 mg/dL (Negative); Ketones 15 mg/dL (Negative); Leukocyte Esterase Negative (Negative); Nitrite Negative (Negative); Urobilinogen 0.2 mg/dL (Up to 0.2)
[2023-04-05 11:40] LABS: Bacteria Many HPF (Negative); C & S Indicated? No/Sq. Contamination; Casts Negative LPF (Negative); Crystals Negative HPF (Negative); Epithelial Cells Many HPF (Negative); Mucus Trace (Negative); WBC 0-2 HPF (0-5)
[2023-04-05] MEDS: fentaNYL 100 MCG/2 ML VIAL 50 MCG IVP (12:55)
[2023-04-05] MEDS: Dexamethasone 4 MG/ML VIAL IVP (16:02)
[2023-04-05] MEDS: fentaNYL 100 MCG/2 ML VIAL 75 MCG IVP (16:02)
== END 2023-04-05 16:20 | disposition home or self-care (01) ==
PROVIDERS: Emergency Provider Physician Assistant; PCP Family Medicine
DX: M54.16 Radiculopathy, lumbar region (principal); N39.498 Other specified urinary incontinence; W19.XXXA Unspecified fall, initial encounter; E11.9 Type 2 diabetes mellitus without complications; Z79.4 Long term (current) use of insulin
CPT/HCPCS: 36415; 80053; 81025; 96374; 96375; 96376; 99285; 72148; 81003; 81015; 84132; 85025; 99284; J1100; J3010; J3360

== ENCOUNTER 2024-02-14 14:24 | Outpatient (CLI) | payer OTHER, SELFPAY ==
[2024-02-14 12:05] LABS: TSH (W/Ref FT4) 2.22 uIU/mL (0.36-3.74)
[2024-02-14 22:20] LABS: T3,Free 3.8 pg/mL (2.8-5.3)
== END 2024-02-14 14:25 | disposition home or self-care (01) ==
LOC: LBO 14:25
PROVIDERS: PCP Family Medicine; Visit Provider Family Medicine
DX: E03.9 Hypothyroidism, unspecified (principal)
CPT/HCPCS: 36415; 84443; 84481

== ENCOUNTER 2024-05-28 10:51 | Outpatient (CLI) | payer OTHER, SELFPAY ==
--- NOTE | 2024-05-28 10:15 | DI.RAD_ITS ---
Exam(s) XR HAND LT COMPLETE EXAM: XR HAND LT COMPLETE CLINICAL HISTORY: Pain after a fall, W19.XXXA. TECHNIQUE: 2D digital imaging was performed. COMPARISON: CR XR HAND RT COMPLETE from 05/28/2024 FINDINGS: 3 views No evidence of acute fracture or dislocation. No radiopaque foreign bodies. Bone density normal. N o osseous lesions nor erosions. IMPRESSION: No acute osseous findings in the left hand. DATA REPOSITORY: RADIATION DOSE DELIVERED:
--- NOTE | 2024-05-28 10:15 | DI.RAD_ITS ---
Exam(s) XR HAND RT COMPLETE EXAM: XR HAND RT COMPLETE CLINICAL HISTORY: Pain after a fall, W19.XXXA. TECHNIQUE: 2D digital imaging was performed. COMPARISON: CR XR HAND RT COMPLETE from 04/23/2021 FINDINGS: 3 views No evidence of acute fracture or dislocation nor radiopaque foreign bodies. Bone density normal. No osseous lesions nor erosions. IMPRESSION: No acute osseous findings in the right hand. DATA REPOSITORY: RADIATION DOSE DELIVERED:
--- NOTE | 2024-05-28 10:15 | DI.RAD_ITS ---
Exam(s) XR HIP LT COMPLETE AP PELVIS EXAM: XR HIP LT COMPLETE AP PELVIS CLINICAL HISTORY: Pain after a fall, W19.XXXA. TECHNIQUE: 2D digital imaging was performed. COMPARISON: No exams were available for comparison FINDINGS: 3 views No evidence of pelvic nor hip fracture. Additional views left hip reveal no fractures. No degenerat efraín changes. Bone density normal. No evidence of avascular necrosis. No osseous lesions. IMPRESSION: No acute osseous findings in the pelvis and hips. DATA REPOSITORY: RADIATION DOSE DELIVERED:
--- NOTE | 2024-05-28 10:15 | DI.RAD_ITS ---
Exam(s) XR RIBS LT W PA LAT CHEST EXAM: XR RIBS LT W PA LAT CHEST CLINICAL HISTORY: Pain after a fall, W19.XXXA. TECHNIQUE: 2D digital imaging was performed. COMPARISON: CR XR CHEST 2V PA LATERAL from 04/27/2022 FINDINGS: Total 6 views Left ribs-four views: No obvious left rib fractures. However, the lateral aspect of the left 6 rib a ppears slightly angular, possibly significant. Heart size normal mediastinum is not widened. There are no infiltrates no pleural effusions. No pne umothorax. IMPRESSION: Possible very subtle fracture left 6 rib. Correlation with site of tenderness recommended. No acute pulmonary findings and no pneumothorax DATA REPOSITORY: RADIATION DOSE DELIVERED:
== END 2024-05-28 11:11 ==
LOC: DI 10:52
PROVIDERS: PCP Family Medicine; Visit Provider Family Medicine
DX: W19.XXXA Unspecified fall, initial encounter (principal); M79.642 Pain in left hand; M79.641 Pain in right hand; M25.552 Pain in left hip; R07.81 Pleurodynia
CPT/HCPCS: 71046; 71100; 73130; 73502